=== PATIENT | female | born 1975 | race Caucasian/White ===

== ENCOUNTER → 2018-02-02 10:05 | Outpatient (CLI) | payer BC, SELFPAY ==
--- NOTE | 2018-02-02 10:07 | DI.MG.S_ITS ---
BILATERAL DIGITAL SCREENING MAMMOGRAM 3D/2D WITH CAD: 02/02/2018 CLINICAL: Baseline exam. Routine screening. No prior exams were available for comparison. The tissue of both breasts is heterogeneously dense. This may lower the sensitivity of mammography. Current study was also evaluated with a Computer Aided Detection (CAD) system. No significant masses, calcifications, or other findings are seen in either breast. IMPRESSION: NEGATIVE There is no mammographic evidence of malignancy. A 1 year screening mammogram is recommended. This exam was interpreted at Station ID: [id number]. NOTE: For mammograms, a report in lay terms will be sent to the patient. Approximately 15% of breast malignancies will not be visualized mammographically. In the management of a palpable breast mass, a negative mammogram must not discourage biopsy of a clinically suspicious lesion. Electronically Signed By: Santos tavarez/dao:02/02/2018 18:50:04 letter sent: Normal Exam ACR BI-RADS Category 1: Negative 3341F
== END ==
PROVIDERS: Family Provider Obstetrics & Gynecology; PCP Family Medicine; Visit Provider Specialist
DX: Z12.31 Encounter for screening mammogram for malignant neoplasm of breast (principal)
CPT/HCPCS: 77063; 77067

== ENCOUNTER → 2020-05-14 11:05 | Outpatient (CLI) | payer OTHER, SELFPAY ==
--- NOTE | 2020-05-14 | DI.US.S_ITS ---
PROCEDURE: US PELVIC COMPLETE INDICATIONS: ABNORMAL UTERINE AND VAGINAL BLEEDING TECHNIQUE: Real-time scanning was performed of the pelvic organs, with image documentation. Additional endovaginal scanning was necessary due to incomplete visualization of the adnexal and endometrial structures by transabdominal scanning. COMPARISON: None. FINDINGS: Uterus: Uterus is normal in size at 8.4 x 4.8 x 3.7 cm. The endometrium measures 6 mm in combined thickness. There are few endometrial cysts measuring up to 3 mm in maximum dimension. A few nabothian cysts are also noted. Ovaries: Right ovary measures 2.9 x 3.1 x 2.0 cm. There is a mildly complicated cyst in the right ovary measuring 1.4 x 1.3 x 0.9 cm. No associated vascularity. Left ovary measures 2.9 x 1.6 x 1.2 cm. Other: No pathologic free abdominal or pelvic fluid. IMPRESSION: 1. Pelvis without acute sonographic abnormalities. 2. A 1.4 cm complicated right ovarian cystic lesion likely representing a resolving functional cyst/hemorrhagic cyst. Consider follow-up pelvic ultrasound in 6-12 weeks document stability versus resolution. 3. Unremarkable sonographic evaluation of the left ovary. Dictated by: David Perales M.D. on 05/14/2020 at 16:56 Approved by: David Perales M.D. on 05/14/2020 at 17:01
== END ==
PROVIDERS: Family Provider Obstetrics & Gynecology; PCP Nurse Practitioner Family; Referring Provider Nurse Practitioner Family; Visit Provider Nurse Practitioner Family
DX: N93.9 Abnormal uterine and vaginal bleeding, unspecified (principal)
CPT/HCPCS: 76830; 76856

== ENCOUNTER → 2020-05-28 09:38 | Outpatient (CLI) | payer OTHER, SELFPAY ==
--- NOTE | 2020-05-28 | DI.MRI.S_ITS ---
PROCEDURE: MR CERVICAL SPINE WO CON INDICATIONS: Cervicalgia TECHNIQUE: Noncontrast sagittal T1 spin echo and T2 fast spin echo, sagittal STIR, foraminal oblique sagittal T2 fast spin echo, and axial gradient echo or T2 fast spin echo through the cervical spine. COMPARISON: None. FINDINGS: Image quality: Excellent. Alignment and Curvature: There is normal bony alignment. Bone Marrow: Marrow demonstrates normal overall signal. Spinal Cord: Visualized spinal cord has normal size and signal. No cerebellar tonsillar herniation. Paraspinous Soft Tissues: No paravertebral masses. Prevertebral soft tissues are normal in thickness. C2-C3: Normal appearance except for slight disc height reduction C3-C4: Normal appearance. C4-C5: Normal appearance. C5-C6: A mild degenerative disc disease pattern is present, with mild disc height reduction and a slight posterior disc bulge. No disc impingement on the adjacent cord is found. C6-C7: The degenerative disc disease is slightly more prominent than at C5-6, with a slightly greater posterior disc bulge. As was seen at the level above no focal impingement on the adjacent cervical cord at time of imaging was seen. C7-T1: Normal appearance. IMPRESSION: Note is made of a small degree of degenerative disc disease comprised of slight disc height reduction and small posterior disc bulging best seen at C6-C7. At none of these levels is nerve root impingement or impingement against the cervical cord identified. No disc herniation is found. No intrinsic lesion within the cervical cord is seen. Dictated by: Nacho Hunt M.D. on 05/28/2020 at 13:24 Approved by: Nacho Hunt M.D. on 05/28/2020 at 14:08
== END ==
PROVIDERS: Family Provider Obstetrics & Gynecology; PCP Nurse Practitioner Family; Referring Provider Nurse Practitioner Family; Visit Provider Nurse Practitioner Family
DX: M50.322 Other cervical disc degeneration at C5-C6 level (principal); M50.223 Other cervical disc displacement at C6-C7 level
CPT/HCPCS: 72141

== ENCOUNTER → 2020-06-26 09:20 | Outpatient (CLI) | payer OTHER, SELFPAY ==
--- NOTE | 2020-06-26 | DI.US.S_ITS ---
PROCEDURE: US PELVIC COMPLETE INDICATIONS: UNSPECIFIED OVARIAN CYST TECHNIQUE: Real-time scanning was performed of the pelvic organs, with image documentation. Additional endovaginal scanning was necessary due to incomplete visualization of the adnexal and endometrial structures by transabdominal scanning. COMPARISON: [facility], , US PELVIC COMPLETE, 05/14/2020, 11:25. FINDINGS: Uterus: Uterus is normal in size at 8.2 x 4 x 4.8 cm. The endometrium measures 5 mm in combined thickness. Ovaries: The right ovary measures 3.9 x 2.8 x 3.2 cm and demonstrates a simple cyst that measures up to 3.1 cm. The previously seen complex cyst has resolved. The left ovary measures 2 x 1 x 1.8 cm. No adnexal masses are seen on either side. Other: No pathologic free abdominal or pelvic fluid. IMPRESSION: Resolution of the previously seen right ovarian complex cyst. There is a 3.1 cm simple cyst involving the right ovary, which is almost certainly benign in a patient of this age. Dictated by: Josué Martino M.D. on 06/26/2020 at 9:56 Approved by: Josué Martino M.D. on 06/26/2020 at 9:57
== END ==
PROVIDERS: Family Provider Obstetrics & Gynecology; PCP Nurse Practitioner Family; Referring Provider Nurse Practitioner Family; Visit Provider Nurse Practitioner Family
DX: N83.291 Other ovarian cyst, right side (principal)
CPT/HCPCS: 76830; 76856

== ENCOUNTER → 2020-07-09 16:48 | Outpatient (CLI) | payer OTHER, SELFPAY ==
--- NOTE | 2020-07-09 16:50 | DI.RAD.S_ITS ---
PROCEDURE: XR FOOT LT MIN 3V INDICATIONS: left Foot injury TECHNIQUE: 3 views of the foot were acquired. COMPARISON: None. FINDINGS: Bones: No fractures or dislocations. No suspicious bony lesions. Soft tissues: No tibiotalar joint effusion. Achilles tendon appears normal. IMPRESSION: No acute left foot fracture or dislocation. Dictated by: Sabino Ackerman M.D. on 07/09/2020 at 17:02 Approved by: Sabino Ackerman M.D. on 07/09/2020 at 17:06
== END ==
PROVIDERS: Family Provider Obstetrics & Gynecology; PCP Nurse Practitioner Family; Referring Provider Student in an Organized Health Care Education/Training Program; Visit Provider Student in an Organized Health Care Education/Training Program
DX: S99.929A Unspecified injury of unspecified foot, initial encounter (principal)
CPT/HCPCS: 73630

== ENCOUNTER → 2021-06-29 10:08 | Outpatient (CLI) | payer OTHER, SELFPAY ==
--- NOTE | 2021-06-29 | DI.MG.S_ITS ---
BILATERAL DIGITAL SCREENING MAMMOGRAM 3D/2D WITH CAD: 06/29/2021 CLINICAL: Routine screening. Comparison is made to exam dated: 02/02/2018 [facility]. The tissue of both breasts is heterogeneously dense. This may lower the sensitivity of mammography. Current study was also evaluated with a Computer Aided Detection (CAD) system. No significant masses, calcifications, or other findings are seen in either breast. There has been no significant interval change. IMPRESSION: NEGATIVE There is no mammographic evidence of malignancy. A 1 year screening mammogram is recommended. This exam was interpreted at Station ID: [id number]. NOTE: For mammograms, a report in lay terms will be sent to the patient. Approximately 15% of breast malignancies will not be visualized mammographically. In the management of a palpable breast mass, a negative mammogram must not discourage biopsy of a clinically suspicious lesion. Electronically Signed By: Fátima tinsley/dao:06/29/2021 11:06:45 letter sent: Normal Exam ACR BI-RADS Category 1: Negative 3341F
== END ==
PROVIDERS: Family Provider Obstetrics & Gynecology; PCP Internal Medicine; Referring Provider Internal Medicine; Visit Provider Internal Medicine
DX: Z12.31 Encounter for screening mammogram for malignant neoplasm of breast (principal)
CPT/HCPCS: 77063; 77067

== ENCOUNTER → 2022-01-28 10:57 | Outpatient (CLI) | payer OTHER, SELFPAY ==
--- NOTE | 2022-01-28 | DI.CT.S_ITS ---
PROCEDURE: CT ABDOMEN PELVIS W CON INDICATIONS: left lower quadrant pain/abdominal distension TECHNIQUE: After the administration of oral and IV contrast, axial sections were acquired from the lung bases to the pubic symphysis. Coronal and sagittal reformats were performed. For radiation dose reduction, the following was used: automated exposure control, adjustment of mA and/or kV according to patient size. COMPARISON: None. FINDINGS: Image quality: Excellent. Lung bases: Unremarkable. Heart: No significant findings. ABDOMEN: Liver: Unremarkable. Gallbladder: Gallbladder is within normal limits. Biliary ducts: Unremarkable. Pancreas: Unremarkable. Spleen: Unremarkable. Adrenal Glands: Unremarkable. Kidneys and Ureters: Unremarkable. Stomach and Bowel: There is no bowel obstruction. Large amount of fecal matter is seen throughout the colon extending to distal sigmoid colon. No gastric or small bowel wall thickening. No colonic wall thickening. No mesenteric fat stranding. No abscess collection. Peritoneum: No abnormal intraperitoneal fluid. No free air. Ventral Wall: No hernia. Abdominal Nodes: No retroperitoneal or mesenteric adenopathy by size criteria. Vessels: Aorta and inferior vena cava are normal in size. PELVIS: Pelvic Organs: Uterus and right ovary show no gross abnormality. 1.8 x 2 cm cystic structure in left adnexa is seen likely represent ovarian cyst. Bladder: Unremarkable. Pelvic Nodes: No enlarged lymph nodes. Miscellaneous: No inguinal hernias are seen. Bones: No suspicious bony lesions. No acute vertebral body compression fracture. IMPRESSION: 1. Moderate constipation. No bowel obstruction or abnormal bowel wall thickening. No free fluid or free air. 2. Suggestion of left ovarian cyst as above. Dictated by: Sabino Ackerman M.D. on 01/28/2022 at 13:48 Approved by: Sabino Ackerman M.D. on 01/28/2022 at 13:58
== END ==
PROVIDERS: Family Provider Obstetrics & Gynecology; PCP Internal Medicine; Referring Provider Internal Medicine; Visit Provider Internal Medicine
DX: R31.21 Asymptomatic microscopic hematuria (principal); R10.32 Left lower quadrant pain; R14.0 Abdominal distension (gaseous); K59.00 Constipation, unspecified
CPT/HCPCS: 74177; Q9967

== ENCOUNTER → 2023-01-28 08:41 | Outpatient (CLI) | payer OTHER, SELFPAY ==
[2023-01-28 10:02] LABS: Add Manual Diff / Slide Review NO; Alanine Aminotransferase 15 IU/L (<35); Albumin 4.1 g/dL (3.5-5.0); Albumin Globulin Ratio 1.2 (1.0-2.8); Alkaline Phosphatase 66 U/L (38-126); Aspartate Aminotransferase 21 IU/L (14-36); BUN Creatinine Ratio 18.8 (6-22); Basophils Absolute Auto 100 /uL (0-100); Bilirubin Total 0.8 mg/dL (0.2-1.3); Blood Urea Nitrogen 12 mg/dL (7-17); Carbon Dioxide 26 mmol/L (22-32); Chloride 105 mmol/L (98-107); Cholesterol 179 mg/dL (140-199); Eosinophils Absolute Auto 200 /uL (0-450); Eosinophils Percent Auto 2.9 % (2-4); Estimated Glomerular Filt Rate > 60 mL/min (>60); Globulin 3.4 g/dL (1.7-4.1); Glucose 91 mg/dL (70-100); HDL Cholesterol 55 mg/dL (40-60); HEMOLYSIS < 15 (0-50); Hematocrit 40.4 % (36-46); Hemoglobin 13.9 g/dL (12.0-16.0); LDL Cholesterol Calculated 101 mg/dL (<100); Lymphocytes Absolute Auto 2200 /uL (1100-4500); Lymphocytes Percent Auto 41.5 % (25-40); Mean Corpuscular HGB Conc 34.4 % (30-36); Mean Corpuscular Hemoglobin 30.1 PG (26-34); Mean Corpuscular Volume 87.4 fL (80-100); Monocytes Absolute Auto 300 /uL (0-900); Monocytes Percent Auto 5.7 % (3-14); Neutrophils Absolute Auto 2600 /uL (1500-7000); Neutrophils Percent Auto 48.9 % (50-75); Platelet Count 337 X10^3/uL (150-400); Potassium 3.9 mmol/L (3.4-5.1); Red Blood Cell Count 4.63 X10^6/uL (4.0-5.2); Red Cell Distribution Width 13.5 % (11.6-14.8); Sodium 138 mmol/L (137-145); Total Protein 7.5 g/dL (6.3-8.2); Triglycerides 117 mg/dL (35-150); White Blood Cell Count 5.2 X10^3/uL (4.5-11.0)
[2023-01-28 10:18] LABS: Follicle Stimulating Hormone < 0.66 mIU/mL; Prolactin 41.3 ng/mL (3.0-18.6)
[2023-01-28 10:35] LABS: TSH w/ Reflex to FT4 1.64 uIU/mL (0.47-4.68)
== END ==
PROVIDERS: Family Provider Obstetrics & Gynecology; PCP Family Medicine; Referring Provider Family Medicine; Visit Provider Family Medicine
DX: N95.1 Menopausal and female climacteric states (principal); Z13.220 Encounter for screening for lipoid disorders
CPT/HCPCS: 36415; 80053; 80061; 83001; 84146; 84443; 85025

== ENCOUNTER → 2023-02-10 15:12 | Outpatient (CLI) | payer OTHER, SELFPAY ==
--- NOTE | 2023-02-10 15:14 | DI.MG.S_ITS ---
BILATERAL DIGITAL SCREENING MAMMOGRAM 3D/2D WITH CAD: 02/10/2023 CLINICAL: Routine screening. Comparison is made to exams dated: 06/29/2021 mammogram and 02/02/2018 mammogram - [facility]. Both breasts are heterogeneously dense, which may obscure small masses (category c / 51-75% glandular tissue). Current study was also evaluated with a Computer Aided Detection (CAD) system. There is a focal asymmetry in the right breast at 9 o'clock posterior depth. No other significant masses, calcifications, or other findings are seen in either breast. IMPRESSION: INCOMPLETE: NEEDS ADDITIONAL IMAGING EVALUATION The focal asymmetry in the right breast is indeterminate. Additional views with possible ultrasound are recommended. Based on the Tyrer Cuzick model (a risk assessment model) the patient's lifetime risk is 14.9% and her 10 year risk is 2.9%. According to the ACR, ACS, and NCCN guidelines, an annual breast MRI exam along with mammogram is recommended if the patient's lifetime risk is 20% or greater. This exam was interpreted at Station ID: [id number]. NOTE: For mammograms, a report in lay terms will be sent to the patient. Approximately 15% of breast malignancies will not be visualized mammographically. In the management of a palpable breast mass, a negative mammogram must not discourage biopsy of a clinically suspicious lesion. Electronically Signed By: Christian Alejo M.D. lc/:02/11/2023 10:11:36 letter sent: Additional Imaging Needed ACR BI-RADS Category 0: Incomplete 3340F
--- NOTE | 2023-02-10 15:14 | DI.US.S_ITS ---
PROCEDURE: US PELVIC COMPLETE INDICATIONS: ovarian cyst TECHNIQUE: Real-time scanning was performed of the pelvic organs, with image documentation. Additional endovaginal scanning was necessary due to incomplete visualization of the adnexal and endometrial structures by transabdominal scanning. COMPARISON: [facility], , US PELVIC COMPLETE, 06/26/2020, 9:30. FINDINGS: Uterus: Uterus is anteverted and normal in size at 8.0 x 4.3 x 4.0 cm. The myometrium is homogeneous. The endometrium measures 5 mm combined thickness. There is a right anterior 3.2 x 2.7 x 2.7 cm fibroid. Ovaries: The right ovary measures 2.4 x 1.2 x 2.9 cm, with a calculated ovarian volume of 4.1 cc. The left ovary measures 2.5 x 1.6 x 1.9 cm, with a calculated ovarian volume of 3.1 cc. The ovaries have a normal sonographic appearance. Less than 12 follicles can be seen in each ovary. No adnexal masses are seen. Normal flow is visualized in the bilateral ovaries. There is a simple right ovarian cyst which measures 1.2 x 1.5 x 0.8 cm and a simple left ovarian cyst which measures 1.5 x 1.0 x 1.4 cm. Other: No pathologic free abdominal or pelvic fluid. IMPRESSION: 1. Uterine fibroid. 2. Bilateral simple ovarian cysts which are within physiologic limits for size in a premenopausal female. We strive to produce accurate, complete, and clear reports of imaging services. To assist us in improving patient care, this report was composed using standard report templates and voice recognition software. Therefore, it may contain abnormal punctuation, insertions and/or omissions. Occasional wrong-word or sound-alike substitutions may occur. Though we review the report and make efforts to correct it, we do recommend that the report be read carefully in proper context to recognize any text inaccuracies. Dictated by: Karen Looney M.D. on 02/10/2023 at 17:26 Approved by: Karen Looney M.D. on 02/10/2023 at 17:28
== END ==
LOC: MAMMO 15:13
PROVIDERS: Family Provider Obstetrics & Gynecology; PCP Family Medicine; Referring Provider Family Medicine; Visit Provider Family Medicine
DX: Z12.31 Encounter for screening mammogram for malignant neoplasm of breast (principal); R92.333 Mammographic heterogeneous density, bilateral breasts; D25.9 Leiomyoma of uterus, unspecified; N83.292 Other ovarian cyst, left side; N83.291 Other ovarian cyst, right side
CPT/HCPCS: 76830; 76856; 77063; 77067; 93976

== ENCOUNTER → 2023-02-22 07:54 | Outpatient (CLI) | payer OTHER, SELFPAY ==
[2023-02-22 09:28] LABS: Prolactin 15.3 ng/mL (3.0-18.6)
[2023-02-23 07:14] LABS: Adrenocorticotropic Hormone 36.4 pg/mL (7.2-63.3)
[2023-02-24 17:40] LABS: IGF-1 118 ng/mL (70-225)
== END ==
PROVIDERS: Family Provider Obstetrics & Gynecology; PCP Family Medicine; Referring Provider Family Medicine; Visit Provider Family Medicine
DX: R79.89 Other specified abnormal findings of blood chemistry (principal)
CPT/HCPCS: 36415; 82024; 84146; 84305

== ENCOUNTER → 2023-03-03 10:16 | Outpatient (CLI) | payer OTHER, SELFPAY ==
--- NOTE | 2023-03-03 | DI.MG.S_ITS ---
UNILATERAL RIGHT DIGITAL DIAGNOSTIC MAMMOGRAM 3D/2D WITH ADDITIONAL VIEWS: 03/03/2023 CLINICAL: Additional evaluation requested from prior study. Comparison is made to exams dated: 02/10/2023 mammogram, 06/29/2021 mammogram, and 02/02/2018 mammogram - [facility]. The right breast is heterogeneously dense, which may obscure small masses (category c / 51-75% glandular tissue). There is a 0.6 cm focal asymmetry in the right breast at 9 o'clock posterior depth. This is seen in additional views. No other significant masses or calcifications are seen in the breast. IMPRESSION: INCOMPLETE: NEEDS ADDITIONAL IMAGING EVALUATION The 0.6 cm focal asymmetry in the right breast is indeterminate. An ultrasound is recommended. Based on the Tyrer Cuzick model (a risk assessment model) the patient's lifetime risk is 14.9% and her 10 year risk is 2.9%. According to the ACR, ACS, and NCCN guidelines, an annual breast MRI exam along with mammogram is recommended if the patient's lifetime risk is 20% or greater. This exam was interpreted at Station ID: [id number]. NOTE: For mammograms, a report in lay terms will be sent to the patient. Approximately 15% of breast malignancies will not be visualized mammographically. In the management of a palpable breast mass, a negative mammogram must not discourage biopsy of a clinically suspicious lesion. Electronically Signed By: Christian Alejo M.D. lc/:03/03/2023 11:30:41 ACR BI-RADS Category 0: Incomplete 3340F
--- NOTE | 2023-03-03 10:17 | DI.US.S_ITS ---
LIMITED ULTRASOUND OF RIGHT BREAST: 03/03/2023 CLINICAL: Patient returns today to evaluate a focal asymmetry in the right breast. Comparison is made to exams dated: 03/03/2023 mammogram, 02/10/2023 mammogram, 06/29/2021 mammogram, and 02/02/2018 mammogram - [facility]. Color flow and real-time ultrasound of the right breast 9 o'clock region were performed. Banuelos scale images of the real-time examination were reviewed. There is a possible 0.2 cm x 0.3 cm x 0.6 cm complicated cyst in the right breast at 9 o'clock posterior depth 8 cm from the nipple. This correlates with mammography findings. IMPRESSION: PROBABLY BENIGN The possible 0.2 cm x 0.3 cm x 0.6 cm complicated cyst in the right breast is probably benign. A follow-up ultrasound in 6 months is recommended to demonstrate stability. This exam was interpreted at Station ID: [id number]. Electronically Signed By: Christian Alejo M.D. lc/:03/03/2023 11:31:42 letter sent: Followup Recommended Ultrasound BI-RADS: 3 Probably benign
== END ==
PROVIDERS: Family Provider Obstetrics & Gynecology; PCP Family Medicine; Referring Provider Family Medicine; Visit Provider Family Medicine
DX: R92.8 Other abnormal and inconclusive findings on diagnostic imaging of breast (principal); R92.331 Mammographic heterogeneous density, right breast; N60.01 Solitary cyst of right breast
CPT/HCPCS: 76642; 77065; G0279

== ENCOUNTER 2023-04-01 07:51 | Day surgery (SDC) | payer OTHER, SELFPAY ==
[2023-04-01] MEDS: LACTATED RINGERS 1,000 ML 100 ML IV (08:16)
[2023-04-01 08:18] VITALS: BP 132/78; PULSE 74; RESP 16; TEMP 36.8; O2SAT 99
--- NOTE | 2023-04-01 08:57 | P.HP_ITS ---
History of Present Illness History of Present Illness Date Patient Seen: 04/01/23 Time Patient Seen: 08:57 Chief complaint: Colonoscopy Narrative: Colon cancer screening, 1st colonoscopy. No family history of symptoms of concern [facility] Medical History Frequent UTI (1996) Kidney stones (1994) Irregular periods/menstrual cycles (1987) Chicken pox (1984) Plantar warts Hayfever Exercise-induced asthma Surgical History No history of previous surgery (10/2014) Family History Grandmother Age: 90 Cervical cancer Grandmother Mental health problem Dementia Social History Smoking Status: Never smoker alcohol intake: current Meds Home Medications and Allergies Home Medications Medication Instructions Recorded Confirmed Type levonorgestrel 0.15 mg-ethinyl 1 tab PO DAILY 01/26/23 04/01/23 History estradiol 0.03 mg tablet bupropion HCl 150 mg 24 hr tablet, 150 mg PO QAM #90 tabs 03/24/23 04/01/23 Rx extended release (Wellbutrin XL) bupropion HCl 150 mg 24 hr tablet, 150 mg PO QAM 04/01/23 04/01/23 History extended release Allergies Allergy/AdvReac Type Severity Reaction Status Date / Time No Known Allergies Allergy Unknown Verified 04/01/23 08:04 Review of Systems Review of Systems ROS: Yes All systems reviewed with the patient and are negative except as otherwise documented Exam Vital Signs (past 8 hours): - 04/01/23 08:18 Temperature 98.2 F Pulse Rate 74 Respiratory Rate 16 Blood Pressure 132/78 Pulse Oximetry 99 Oxygen Delivery Method Room Air Oxygen Delivery Method Room Air Const General: cooperative, healthy appearing and comfortable [facility] Head: normocephalic and atraumatic Eyes General: appearance normal, both eyes and all related structures Sclera: sclerae normal Neck Neck: trachea midline and No JVD Resp Effort & Inspection: normal respiratory effort and able to speak in complete sentences Cardio Rate: regular rate Rhythm: regular rhythm GI Palpation: soft and No tender Skin General: elasticity normal and turgor normal Neuro General: patient alert, patient awake and patient oriented x3 Psych Appearance: grossly normal Mental Status: mental status grossly normal Judgment: judgment good Assessment & Plan Assessment & Plan narrative: colon cancer screening Colonoscopy with anesthesia Time Spent With Patient Time with patient: less than 30 minutes
--- NOTE | 2023-04-01 09:19 | PM.OP.COLON ---
Operative Date/Time/Diagnoses Date of procedure: 04/01/23 Time of procedure: 09:19 Pre-op diagnosis: Colon cancer screening Post-op diagnosis: same Procedure & Clinicians Study performed: Colonoscopy with anesthesia Same procedure as scheduled: Yes Indications: Colon cancer screening Surgeon: Lilian Norris Procedure Notes Procedure in detail: Preop diagnosis: Colon cancer screening Postop diagnosis: Same Operative procedure: Colonoscopy with anesthesia Surgeon: Mikki Norris MD Findings: No polyps, no diverticulosis. Procedure: Patient placed in lateral position. Rectal exam performed showing normal tone no masses. Colonoscope inserted into the rectum and advanced to ileocecal valve with minimal difficulty a small amount of abdominal pressure. Insufflation extraction of the scope including retroflex in the rectum had the above findings Impression: No polyps, no diverticulosis Plan: Repeat colonoscopy in 10 years unless otherwise indicated by change in clinical condition Specimen(s): none sent Complications: none Post-procedure Recommendations: Colonoscopy in 10 years Follow up: as needed Disposition: PACU
[2023-04-01 09:22] VITALS: BP 120/77; PULSE 95; RESP 18; TEMP 36.1; O2SAT 97
[2023-04-01 09:27] VITALS: BP 121/82; PULSE 88; RESP 13; O2SAT 97
[2023-04-01 09:34] VITALS: BP 122/74; PULSE 77; RESP 12; O2SAT 96
== END 2023-04-01 09:45 | disposition home or self-care (01) ==
PROVIDERS: Family Provider Obstetrics & Gynecology; PCP Family Medicine; Referring Provider Surgery; Visit Provider Surgery
PROC: 0DJD8ZZ Inspection of Lower Intestinal Tract, Via Natural or Artificial Opening Endoscopic (ICD-10-PCS; CPT 45378; principal; 2023-04-01 08:45)
DX: Z12.11 Encounter for screening for malignant neoplasm of colon (principal)
CPT/HCPCS: 45378; J2704

== ENCOUNTER → 2023-06-05 15:31 | Outpatient (CLI) | payer OTHER, SELFPAY | PROVIDERS: Family Provider Obstetrics & Gynecology; PCP Family Medicine; Visit Provider Physician Assistant Medical | DX: R30.0 Dysuria (principal) | CPT/HCPCS: 87086 ==

== ENCOUNTER → 2023-06-13 14:17 | Outpatient (CLI) | payer OTHER, SELFPAY | PROVIDERS: Family Provider Obstetrics & Gynecology; PCP Family Medicine; Visit Provider Family Medicine | DX: R30.0 Dysuria (principal) | CPT/HCPCS: 87086 ==

== ENCOUNTER → 2023-08-22 11:15 | Outpatient (CLI) | payer OTHER, SELFPAY ==
--- NOTE | 2023-08-22 11:16 | DI.US.S_ITS ---
ULTRASOUND OF RIGHT BREAST: 08/22/2023 CLINICAL: Follow up from addtional views. Comparison is made to exams dated: 03/03/2023 ultrasound, 03/03/2023 mammogram, 02/10/2023 mammogram, and 06/29/2021 mammogram - [facility]. Color flow and real-time ultrasound of the right breast were performed. There is a possible 0.3 cm x 0.1 cm x 0.2 cm complicated cyst in the right breast at 9 o'clock posterior depth 8 cm from the nipple. This abnormality is slightly decreased in size and correlates with mammography findings. There also is a possible 0.4 cm x 0.2 cm x 0.3 cm complicated cyst in the right breast at 10 o'clock posterior depth 8 cm from the nipple. This correlates as an incidental finding. IMPRESSION: PROBABLY BENIGN The possible 0.3 cm x 0.1 cm x 0.2 cm complicated cyst in the right breast at 9 o'clock posterior depth is probably benign. (first seen on US 03/03/23) The possible 0.4 cm x 0.2 cm x 0.3 cm complicated cyst in the right breast at 10 o'clock posterior depth is probably benign. (first seen on US 08/22/23) A follow-up ultrasound in 6 months is recommended to demonstrate stability. This exam was interpreted at Station ID: [id number]. Electronically Signed By: Christian Alejo M.D. lc/:08/22/2023 11:58:02 letter sent: Followup Recommended Ultrasound BI-RADS: 3 Probably benign
== END ==
PROVIDERS: Family Provider Obstetrics & Gynecology; PCP Family Medicine; Referring Provider Family Medicine; Visit Provider Family Medicine
DX: R92.8 Other abnormal and inconclusive findings on diagnostic imaging of breast (principal)
CPT/HCPCS: 76642

== ENCOUNTER → 2024-04-10 08:30 | Outpatient (CLI) | payer OTHER, SELFPAY ==
--- NOTE | 2024-04-10 08:31 | DI.US.S_ITS ---
US breast RT limited: 04/10/2024. BI-RADS: 0 CLINICAL: 48-year old female for right diagnostic breast [place]. Tyrer-zick lifetime risk of 12.1%. No personal or first-degree family history of breast cancer. PRIOR EXAMS 08/22/2023, 03/03/2023, 02/10/2023, 06/29/2021. ULTRASOUND TECHNIQUE Real-time scale and color doppler imaging of the area of clinical interest was performed with image documentation. TARGETED Right Breast Ultrasound: Real-time ultrasound exam was performed focused to area of clinical and/or imaging concern. ULTRASOUND FINDINGS The previous 9:00 finding is no longer seen. Right: Upper Outer at 10:00, 8.0 cm from nipple, measuring 0.3 x 0.2 x 0.2 cm: There is a complicated cyst that is unchanged in size and appearance. IMPRESSION: * Patient is due for mammogram, which is recommended at this time. Right (Complicated Cyst): Upper Outer at 10:00, 8.0 cm from nipple, measuring 0.3 x 0.2 x 0.2 cm * Incomplete - Needs additional imaging evaluation. RECOMMENDATIONS * Bilateral screening mammogram is due and currently recommended. Right: Upper Outer at 10:00, 8.0 cm from nipple * Six month followup with diagnostic ultrasound. OVERALL ASSESSMENT CATEGORY BI-RADS-0: Incomplete - Need Additional Imaging Evaluation. ELECTRONICALLY SIGNED: Christian Alejo M.D. on 04/10/2024 at 09:37:31 AM Interpreting Station ID: [id number]
== END ==
LOC: US 08:30
PROVIDERS: Family Provider Obstetrics & Gynecology; PCP Family Medicine; Referring Provider Family Medicine; Visit Provider Family Medicine
DX: N60.01 Solitary cyst of right breast (principal); N60.02 Solitary cyst of left breast
CPT/HCPCS: 76642

== ENCOUNTER → 2024-04-26 08:31 | Outpatient (CLI) | payer OTHER, SELFPAY ==
--- NOTE | 2024-04-26 08:32 | DI.MG.S_ITS ---
MM screening mammo BI: 04/26/2024. BI-RADS: 1 CLINICAL: 48-year old female for bilateral screening mammogram. Tyrer-Cuzick lifetime risk of 21.6%. No personal or first-degree family history of breast cancer. Current reported family history of breast cancer: paternal aunt. PRIOR EXAMS 04/10/2024, 08/22/2023, 03/03/2023, 02/10/2023, 06/29/2021, 02/02/2018. MAMMOGRAPHY TECHNIQUE: 2D and 3D (tomosynthesis) digital mammographic views obtained, with additional images as needed for full coverage. Current study was also evaluated with a Computer Aided Detection (CAD) system. DENSITY C. The breasts are heterogeneously dense, which may obscure small masses. MAMMOGRAPHY FINDINGS Bilateral: No suspicious mass, asymmetry, microcalcification, or other abnormality seen. No significant change from comparison. IMPRESSION: * No evidence of malignancy. OVERALL ASSESSMENT CATEGORY BI-RADS-1: Negative. [employer] recommends annual screening mammography beginning at age 40 for women with average risk of breast cancer. ELECTRONICALLY SIGNED: Yissel Viveros M.D. on 04/26/2024 at 12:45:22 PM PT Interpreting Station ID: [id number]
== END ==
PROVIDERS: Family Provider Obstetrics & Gynecology; PCP Family Medicine; Referring Provider Family Medicine; Visit Provider Family Medicine
DX: Z12.31 Encounter for screening mammogram for malignant neoplasm of breast (principal); Z80.3 Family history of malignant neoplasm of breast; R92.333 Mammographic heterogeneous density, bilateral breasts
CPT/HCPCS: 77063; 77067

== ENCOUNTER → 2024-12-03 09:15 | Outpatient (CLI) | payer OTHER, SELFPAY ==
--- NOTE | 2024-12-03 09:16 | DI.US.S_ITS ---
US breast RT limited: 12/03/2024. BI-RADS: 2 CLINICAL: 49-year old female for right diagnostic breast ultrasound that is a follow-up to diagnostic breast ultrasound on 04/10/2024. Tyrer-Cuzick lifetime risk of 21.7%. No personal or first-degree family history of breast cancer. Current reported family history of breast cancer: paternal aunt. PRIOR EXAMS 04/26/2024, 04/10/2024, 08/22/2023, 03/03/2023, 02/10/2023, 06/29/2021, 02/02/2018. ULTRASOUND TECHNIQUE TARGETED Right Breast Ultrasound: Real-time ultrasound exam was performed focused to area of clinical and/or imaging concern. Real-time scale and color doppler imaging of the area of clinical interest was performed with image documentation. ULTRASOUND FINDINGS Right: Upper Outer at 10:00, 8 cm from nipple, measuring 0.4 x 0.4 x 0.7 cm - previously measuring (04/10/2024) 0.3 x 0.2 x 0.2 cm: Correlating with prior imaging concern, there is a cyst showing posterior acoustic enhancement. Doppler shows no vascularity. This finding is larger but appears more anechoic compared to the prior, compatible with benign clustered microcysts. IMPRESSION: Right * No evidence of malignancy with benign findings. RECOMMENDATIONS Bilateral * Annual screening mammography (due April 2025). COMMENTS: Findings and recommendations were conveyed to the patient during today's evaluation. In addition, this patient has an elevated lifetime risk for breast cancer of over 20%. Recommend consideration for annual screening breast MRI as an adjunct to screening mammography. OVERALL ASSESSMENT CATEGORY BI-RADS-2: Benign. ELECTRONICALLY SIGNED: Yissel Viveros M.D. on 12/03/2024 at 09:49:10 PM PT Interpreting Station ID: [id number]
== END ==
LOC: US 09:16
PROVIDERS: Family Provider Obstetrics & Gynecology; PCP Family Medicine; Referring Provider Family Medicine; Visit Provider Family Medicine
DX: N63.11 Unspecified lump in the right breast, upper outer quadrant (principal); N60.01 Solitary cyst of right breast; Z80.3 Family history of malignant neoplasm of breast
CPT/HCPCS: 76642